=== PATIENT | female | born 1960 | race Caucasian/White ===

== ENCOUNTER 2018-03-23 07:15 | Outpatient (CLI) | payer OTHER ==
[2018-03-23 12:51] LABS: BASOPHILS % (AUTO) 0.6 %; EOSINOPHILS # (AUTO) 0.2 10^3/uL (0.0-0.7); EOSINOPHILS % (AUTO) 3.4 %; HGB - HEMOGLOBIN 13.2 g/dL (12.0-16.0); LYMPHOCYTES # (AUTO) 1.7 10^3/uL (1.5-3.5); LYMPHOCYTES % (AUTO) 25.3 %; MEAN CORPUSCULAR HEMOGLOBIN 29.9 pg (27.0-31.0); MEAN CORPUSCULAR VOLUME 90.5 fL (81.0-99.0); MEAN PLATELET VOLUME 8.1 fL (7.9-10.8); MONOCYTES # (AUTO) 0.5 10^3/uL (0.0-1.0); MONOCYTES % (AUTO) 7.6 %; NEUTROPHILS # (AUTO) 4.2 10^3/uL (1.5-6.6); NEUTROPHILS % (AUTO) 63.1 %; PLT - PLATELET COUNT 275 10^3/uL (130-450); RED BLOOD COUNT 4.42 10^6/uL (4.20-5.40); RED CELL DISTRIBUTION WIDTH 13.5 % (12.0-15.0); WHITE BLOOD COUNT 6.6 x10^3/uL (4.8-10.8)
[2018-03-23 13:47] LABS: ALBUMIN 4.4 g/dL (3.2-5.5); ALBUMIN/GLOBULIN RATIO 1.8 (1.0-2.2); ALKALINE PHOSPHATASE 51 IU/L (42-121); ALT ALANINE AMINOTRANSFERASE 22 IU/L (10-60); AST ASPARTATE AMINOTRANSFERASE 28 IU/L (10-42); BILIRUBIN,TOTAL 0.7 mg/dL (0.2-1.0); BUN - BLOOD UREA NITROGEN 14 mg/dL (6-20); CALCIUM 9.4 mg/dL (8.5-10.3); CARBON DIOXIDE - CO2 28 mmol/L (21-32); CHLORIDE 106 mmol/L (101-111); CHOL/HDL RATIO 2.5 (<4.4); CHOLESTEROL 219 mg/dL; CREATININE 0.7 mg/dL (0.4-1.0); GFR - MDRD 86 (>89); GLUCOSE 101 mg/dL (70-100); HDL CHOLESTEROL 87 mg/dL; LDL CHOLESTEROL,CALCULATED 121 mg/dL; LDL/HDL RATIO 1.4 (<4.4); SODIUM 139 mmol/L (135-145); TOTAL PROTEIN 6.9 g/dL (6.7-8.2); VLDL CHOLESTEROL 11 mg/dL
[2018-03-23 13:49] LABS: HB2 TOTAL 14.3 g/dL; HEMOGLOBIN A1C 0.5 g/dL; HEMOGLOBIN A1C % 5.4 % (4.6-6.2)
== END 2018-03-23 07:16 ==
LOC: LAB.WCP 07:15
PROVIDERS: ATTEND Family Medicine
DX: Z00.00 Encounter for general adult medical examination without abnormal findings (principal)
CPT/HCPCS: 36415; 80053; 80061; 83036; 83721; 84443; 85025

== ENCOUNTER 2018-03-29 08:52 | Outpatient (CLI) | payer OTHER ==
--- NOTE | 2018-04-04 15:57 | Mammography Report ---
SCREENING MAMMOGRAM: 03/29/2018 CLINICAL INDICATION: A 58-year-old nulliparous the patient for screening. COMPARISON: Films from [place], [place] dated 12/23/2015, 09/27/2014, 11/01/2012, 09/09/2010. TECHNIQUE: Routine CC and MLO projections and bilateral laterally exaggerated craniocaudal views were obtained of the breasts. FINDINGS: The breasts demonstrate scattered fibroglandular densities bilaterally. A few punctate, typically benign calcifications are present. No suspicious masses, clustered microcalcifications, or regions of architectural distortion are identified. IMPRESSION: BENIGN FINDINGS. RECOMMENDATION: Routine annual screening unless otherwise clinically indicated. BI-RADS CATEGORY 2 BENIGN FINDINGS. STANDARD QUALIFYING STATEMENTS: 1. This examination was reviewed with the aid of Computer-Aided Detection (CAD). 2. A negative or benign imaging report should not delay biopsy if clinically suspicious findings are present. Consider surgical consultation if warranted. More than 5% of cancers are not identified by imaging. 3. Dense breasts may obscure an underlying neoplasm. TD: 04/04/2018 15:56
== END 2018-03-29 08:53 | disposition home or self-care (01) ==
LOC: DI 08:52
PROVIDERS: ATTEND Family Medicine
DX: Z12.31 Encounter for screening mammogram for malignant neoplasm of breast (principal)
CPT/HCPCS: 77067

== ENCOUNTER 2018-11-01 14:49 | Outpatient (CLI) | payer OTHER ==
--- NOTE | 2018-11-02 09:20 | Ultrasound Report ---
Reason: LOCALIZED SWELLING, MASS AND LUMP, LEFT UPPER LIMB Procedure Date: 11/01/2018 Accession Number: [id number] / [id number] Procedure: US - Ext Limited Non Vascular CPT Code: FULL RESULT: EXAM: RIGHT/LEFT UPPER EXTREMITY ULTRASOUND - LIMITED EXAM DATE: 11/01/2018 03:07 PM. CLINICAL HISTORY: Localized swelling, mass and lump, left upper limb. COMPARISON: None. TECHNIQUE: Real-time scanning was performed with static images obtained. FINDINGS: The finding corresponds to a 0.9 x 1.4 x 0.5 cm heterogeneous soft tissue prominence with an the appearance most suggestive of tissue. No abnormal vascularity or collection is identified. There is no evidence of local aggression and all surrounding fascial planes are respected. IMPRESSION: Please note that the examination was performed after hours and the measurement was obtained of a portion of normal-appearing tissue which leaves me with an overall impression of normal musculature, less likely lipoma. The diagnosis cannot be made definitively with these images. The appearance is certainly benign. If more definite interpretation is desired, the patient may return to the imaging department for additional no-charge imaging during regular business hours without an appointment for direct ultrasound examination by me. RADIA
== END 2018-11-01 14:50 | disposition home or self-care (01) ==
LOC: DI 14:49
PROVIDERS: ATTEND Family Medicine
DX: R22.32 Localized swelling, mass and lump, left upper limb (principal)
CPT/HCPCS: 76882

== ENCOUNTER 2018-11-03 14:50 | Outpatient (CLI) | payer OTHER ==
--- NOTE | 2018-11-03 15:48 | Ultrasound Report ---
Reason: MASS LT UPPER LIMB - TECH REPEAT Procedure Date: 11/03/2018 Accession Number: [id number] / [id number] Procedure: US - Ext Limited Non Vascular CPT Code: FULL RESULT: EXAM: LEFT UPPER EXTREMITY SOFT TISSUE ULTRASOUND - LIMITED EXAM DATE: 11/03/2018 03:18 PM. CLINICAL HISTORY: Mass left upper limb - TECH repeat. COMPARISON: EXT limited nonvascular 11/01/2018 2:57 PM. TECHNIQUE: Real-time scanning was performed with static images obtained. FINDINGS: An ovoid well-demarcated wider than tall heterogeneous lesion measuring 2.9 x 2.6 cm with a thickness of 0.5 cm is detected in the subcutaneous tissues over the left shoulder. The lesion from nearby tissue planes shows no evidence of local invasion into nearby structures or indistinct borders. The finding is distinctly separate from the shoulder joint. IMPRESSION: The ultrasound appearance of this lesion is nonspecific and suggestive of benignity. One possibility is a benign peripheral nerve sheath tumor, neuroma. A lipoma is felt to be less likely. RADIA
== END 2018-11-03 14:51 | disposition home or self-care (01) ==
LOC: DI 14:50
PROVIDERS: ATTEND Family Medicine
DX: R22.32 Localized swelling, mass and lump, left upper limb (principal)
CPT/HCPCS: 76882